=== PATIENT | male | born 1965 | race Caucasian/White ===

== ENCOUNTER 2018-08-29 08:44 | Emergency (ER) | payer OTHER, SELFPAY ==
[2018-08-29 08:46] VITALS: BP 113/85; PULSE 94; RESP 12; TEMP 37; O2SAT 99; BMI 22.4
--- NOTE | 2018-08-29 08:59 | ED.VISSUMM ---
- ER Visit Summary Date of Service: 08/29/18 Chief Complaint: Dysuria, fever History of Present Illness: The patient is a 53 M who is otherwise healthy presents with dysuria and fever. Patient had a colonoscopy done on Saturday. He states he had a normal prep. He states that unfortunately, they did find evidence of colon cancer. He states on Saturday, he began to have a lot of bladder pain. He states that he would have a lot of pain when he urinated and began to develop fevers. He states as long as he takes Tylenol, the pain is bearable and his fever is controlled. He has no abdominal pain. He has no back pain. He has no nausea or vomiting. He is moving his bowels without issue. He denies any rectal pain or pain with moving his bowels. Physical Examination: Vital signs reviewed General: Well-nourished, well-developed Head: Normocephalic, atraumatic Eyes: Pupils equal and reactive, extraocular muscles intact Neck, supple, no lymphadenopathy Heart: Regular rate and rhythm Respiratory: No distress, clear bilaterally Abdomen: Soft, nontender, nondistended, no peritoneal signs Back: Nontender Extremities: Nontender, no edema, no cords Skin: Normal color no rash Neuro: Alert and oriented, no focal or lateralizing deficits Test Results: [] Emergency Department Course and Treatment: The patient has absolutely no abdominal pain. He is afebrile here. He has no flank pain. He said a lot of pain with urination and intermittent fever. I do suspect acute cystitis as the cause of his symptoms. Urine was obtained which does show definitive evidence of infection. Culture was added. At this time, I do feel the patient is safe for outpatient therapy. He is not hypotensive. Is not tachycardic. He is afebrile here. He is very well-appearing and has no significant comorbidities. The patient will be started on ciprofloxacin. He was counseled on concerning symptoms and reasons to return. Culture will be followed. The patient will be discharged home. Treatment Plan: [] Disposition: Discharge Impression: 1. Acute cystitis with hematuria This note was generated with [employer] software. It may contain incorrect words, spelling, and punctuation that were not noted in review of the chart prior to signing ED Disposition - Plan for ED Patient: Chief Complaint: Fever Instructions: ED UTI Cystitis Male Prescriptions: Ciprofloxacin [Cipro] 500 mg PO BID #14 tab Referrals: Dami Flores III, MD [STAFF PHYSICIAN] -
[2018-08-29 09:06] LABS: Bacteria 0 SEEN /hpf (None Seen); Squamous Epithelial Cells - UA 0 SEEN /hpf (0-5)
[2018-08-29 09:08] LABS: Color, Urine Yellow (Yellow); Glucose, Dipstick Normal (Normal); Ketone-Dipstick 5 mg/dl (Negative); Leukocyte Esterase-Dipstick 500 /ul (Negative); Nitrite-Dipstick Negative (Negative); Occult Blood-Urine 250 /ul (Negative); Protein-Dipstick 100 mg/dl (Negative); Urine Bilirubin Dipstick Negative (Negative); Urine Clarity Cloudy (Clear); Urine Urobilinogen 4 mg/dl (Normal)
[2018-08-29] MEDS: Ciprofloxacin 500 MG Tablet PO (09:16)
[2018-08-29 09:20] LABS: Mucous, Urine 1+ /hpf (<or=2+); Red Blood Cells-Urine 10-25 SEEN /hpf (0-5); White Blood Cells >100 SEEN /hpf (0-5)
== END 2018-08-29 09:25 | disposition home or self-care (01) ==
PROVIDERS: Emergency Provider Emergency Medicine; Family Provider Family Medicine; PCP Family Medicine
DX: N30.01 Acute cystitis with hematuria (principal)
CPT/HCPCS: 81001; 87077; 87086; 87088; 87186; 99282

== ENCOUNTER 2018-09-22 05:52 | Day surgery (SDC) | payer OTHER, SELFPAY ==
[2018-09-22] VITALS (10 sets, daily range): BP systolic 80–109; BP diastolic 55–78; PULSE 45–55; RESP 14–16; TEMP 36.2–36.8; O2SAT 94–100; BMI 22.9
[2018-09-22] MEDS: Cefazolin 2 GM in 0.9% Normal Saline 100 ML IV (08:03)
[2018-09-22] MEDS: Bupivacaine 0.5% PF 10 ML VIAL (08:18)
--- NOTE | 2018-09-22 08:42 | RAD_ITS ---
STUDY: X-RAY CHEST REASON FOR EXAM: Male, 53 years old. Port placement. TECHNIQUE: Single AP portable view of the chest. COMPARISON: None. FINDINGS: A left-sided portacatheter has been placed. The tip is in the midportion of the superior vena cava. Focal infiltrate is seen in the retrocardiac region. There is no demonstrated pleural abnormality. Normal size heart. Normal mediastinum and jair. Normal visualized pulmonary arteries. Normal visualized aortic arch and descending thoracic aorta. Normal visualized thoracic spine. Normal visualized ribs, clavicles, and shoulders. There is no demonstrated abnormality of the visualized soft tissue structures of the upper abdomen. RAD/CXR for Line Placement IMPRESSION: The tip of the left portacatheter is in the midportion of the superior vena cava. Infiltrate in the left lung base behind the heart. Electronically Signed: Luther Leon MD at 9:15 EDT Tel [phone], Service support ,
--- NOTE | 2018-09-22 08:42 | PCM.OPRPT ---
Report of Operation Date of Procedure: 09/22/18 Pre-Operative Diagnosis: rectal cancer, need for IV access Post-Operative Diagnosis: successful left subclavian portacath Surgery/Procedure Performed:: left subclavian portacath with fluoroscopy health care technician: None Type of Anesthesia:: MAC Anesthesiologist: Manny Arevalo - asa2 Specimen's removed: none Estimated Blood Loss (mL): <10 Fluids Replaced: 700 Description of Procedure: The patient was brought to the operating suite. The left subclavian site was marked in the holding area and the patient concurred this was the planned operative site. Sign was performed verifying patient, site, position, skip antibiotic prophylaxis-2 g of Ancef and DVT prophylaxis with SCDs. Following IV sedation, the left neck and chest were prepped and draped in the usual fashion. Timeout was performed verifying patient, site, position. Local anesthetic was injected and a Seldinger needle was used to access the left subclavian vein without difficulty. Under fluoroscopic control, a guidewire was inserted and advanced the SVC RA region. Local anesthetic was injected and incision made and pocket created for the port site. Next the catheter was tunneled from the wire site incision to the port site incision. Under fluoroscopic control introducer sheath and dilator were inserted over the wire. The wire and dilator removed. The catheter was fed through the introducer suture sheath and adjusted to the SVC RA region. There was good return of venous blood and easy inflow of saline through the system. Fluoroscopy demonstrated good positioning of the catheter. Next the catheter was cut to length affixed to the port with the locking ring and secured in the pocket with 2-2-0 Prolene sutures. Subcutaneous fat closed with interrupted 3-0 Vicryl suture. Skin closed with 4-0 Biosyn interrupted and running subcuticular sutures. Fluoroscopy demonstrated good position of the system. The port was accessed. There was good return of venous blood. Inflow of saline was easy. The port was then flushed with 2-3 cc of 100 unit per heparin solution. A dressing was applied. The patient was brought to recovery room in stable condition. Grafts/Implants Used: power port ref [id number] exp 01/23/2020 - Admit VTE Documentation VTE Present on Admission: No VTE Mechan Device Prophylaxis: SCD's VTE Pharm Prophylaxis ordered?: No
--- NOTE | 2018-09-22 08:47 | DCINST_ITS ---
Discharge Diet: No Restrictions - Pain medication may cause nausea. You should typically eat light foods as you take your pain medication. Discharge Activity: Return to Normal Activity, May Shower - with the bandage in place 1-2 days after surgery. DO NOT SHOWER WHEN YOUR PORT IS ACCESSED. Additional Activity Instructions:: May not drive, work with heavy equipment, or sign legal documents for [address] if you are no longer taking narcotic pain medications. You may drive when you are no longer taking pain medications. Additional Dressing/Incision Instructions:: Leave the bandage on for 2-3 days. When you remove the bandage, leave the steri-strips intact until they fall off. Allergies/Adverse Reactions: Allergies No Known Allergies Allergy (Verified 09/18/18 10:15) Medications to take at Discharge Atorvastatin Calcium [Lipitor] 20 mg PO QHS 09/22/18 Omeprazole 40 mg PO DAILY 09/22/18 Oxycodone [Oxyir] 5 mg PO Q6H PRN PRN 7 Days #12 tab 09/22/18 The following prescriptions were given: Oxycodone [Oxyir] 5 mg PO Q6H PRN PRN 7 Days #12 tab PRN Reason: Severe Pain (6-09/03) Primary Care Physician: Parvez Winston MD [Primary Care Provider] - Test Results: Test results from this visit will be discussed in further detail at your follow- up appointment, if applicable. Please Follow Up With: Blu Kruger MD - [phone] When: Please plan to follow up in 7 days in the office.
== END 2018-09-22 10:14 | disposition home or self-care (01) ==
LOC: SDC 05:53 → AC 05:54
PROVIDERS: Family Provider Family Medicine; PCP Family Medicine; Referring Provider Surgery; Visit Provider Surgery
PROC: (CPT 36561; principal; 2018-09-22 07:45)
DX: Z45.2 Encounter for adjustment and management of vascular access device (principal); C20 Malignant neoplasm of rectum; K22.70 Barrett's esophagus without dysplasia; E04.1 Nontoxic single thyroid nodule; N40.2 Nodular prostate without lower urinary tract symptoms; Z79.899 Other long term (current) drug therapy; Z87.891 Personal history of nicotine dependence; Z80.0 Family history of malignant neoplasm of digestive organs
CPT/HCPCS: 00532; 36561; 71045; 77001; J7120; C1788; J2405

== ENCOUNTER → 2018-10-13 14:28 | Outpatient (CLI) | payer OTHER, SELFPAY ==
[2018-10-13 14:48] LABS: Hematocrit 38.3 % (40-54); Hemoglobin 12.4 g/dl (13.0-16.5); Mean Corp Hgb Conc 32.4 g/gl (32-36); Mean Corpuscular Hgb 29.3 pg (27.0-32.0); Mean Corpuscular Volume 90.5 fL (80-94); Mean Platelet Vol. 8.7 fl (6.2-12.0); Platelet Count 193 K/mm3 (150-450); RBC Distribution Width CV 13.8 % (11.6-14.6); RBC Distribution Width SD 44.2 fl (35.1-43.9); Red Blood Count 4.23 M/mm3 (4.6-6.2); White Blood Count 4.5 K/mm3 (4.4-11.0)
[2018-10-13 14:56] LABS: Lymphocyte % 22.8 % (19-41); Monocyte% 14.4 % (0-10); POSITIVE COUNT NO; POSITIVE DIFFERENTIAL NO; POSITIVE MORPHOLOGY NO
[2018-10-13 14:57] LABS: Absolute Lymphocyte Count 1.04 X10^3/ul (0.83-4.51); Absolute Neutrophil Count 2.7 X10^3/uL (2.0-7.7); Basophil# 0.02 X10^3/uL; Basophil% 0.4 % (0-1); Eosinophil# 0.09 X10^3/uL; Lymphocyte # 1.04 X10^3/ul (4.0); Monocyte# 0.66 X10^3/uL; Neutrophil # 2.74 X10^3/uL (2.7-7.7)
== END ==
PROVIDERS: PCP Family Medicine; Visit Provider Internal Medicine Hematology & Oncology
DX: C20 Malignant neoplasm of rectum (principal)
CPT/HCPCS: 85025

== ENCOUNTER → 2018-10-24 17:09 | Outpatient (CLI) | payer OTHER, SELFPAY ==
[2018-09-22 06:45] VITALS: BMI 22.9
--- NOTE | 2018-10-24 | IMM_PTH ---
PATIENT: SASKIA VILLARREAL LOC: [facility] U#:[id number] AGE/SX: 60/M ROOM: RE10/24/[address]: Dr. Cat Mohamud MD : 1965 BED: DIS: SPEC #: [id number] RECD: 10/28/18 12:39 STATUS: LAYO RERusty #: [id number] ANDRÉS: 10/24/18 00:[address]: Cat Mohamud DEPT: IMMUNOHISTOCHEMISTRY RECD BY: Margie Horta ENTERED: 10/28/18 12:42 SP TYPE: IMMUNO OTHR DR: Dr. Parvez Winston MD Tissues: A - Thyroid gland, NOS Procedures: CK19 (initial) CD56 (add) GAL-3 (add) HBME (add) PHYSICIAN & INSTITUTION [place] [id number] SPECIMEN INFORMATION: Tissue Source: A - Right thyroid Clinical Info: Right thyroid nodule Specimen Number: [id number] CPT code: 07445, 42238 x3 METHODOLOGY: Deparaffinized sections of prefer/formalin-fixed tissue or PAP/DQ stained slides are incubated with monoclonal/polyclonal antibodies/oligonucleotide probes. Localization is made via biotin free immunoperoxidase method. Appropriate controls are performed and reacted as expected. Results on target cell population are indicated in the following table: RESULTS: ANTIBODY / CLONE RESULT Block A CK19 (A53-B/A2.26) positive CD56 (123C3.D5) positive HBME1 (HBME-1) positive GAL3 (9C4) negative These tests were developed and their performance characteristics determined by [facility]. They may not have been cleared or approved by the U.S. Food and Drug Administration. The FDA has determined that such clearance or approval is not necessary. INTERPRETATION: A. Right thyroid, FNA: Atypical follicular cells of undetermined significance. SJ:beena 10/29/18 Case has been reviewed in consultation with Dr. Cline who concurs with the above diagnosis. IDC:EMILI
--- NOTE | 2018-10-24 | FLU_PTH ---
PATIENT: SASKIA VILLARREAL LOC: [facility] U#:[id number] AGE/SX: 60/M ROOM: RE10/24/[address]: Dr. Cat Mohamud MD : 1965 BED: DIS: SPEC #: [id number] RECD: 10/24/18 16:47 STATUS: LAYO RERusty #: [id number] ANDRÉS: 10/24/18 00:[address]: Cat Mohamud DEPT: CYTOLOGY RECD BY: Flako Carroll ENTERED: 10/27/18 12:28 SP TYPE: Fluid OTHR DR: Dr. Parvez Winston MD Tissues: A - Thyroid gland, NOS B - Thyroid gland, NOS Procedures: Pap Stain (control) Special Stain Group II Surgery Specimen Level IV Cell Block Cytospin Fluid HEADER OPERATION: Ultrasound-guided fine needle aspiration of right thyroid PRE-OP DIAGNOSIS: Right thyroid nodule TISSUE SUBMITTED: A - FNA right thyroid for cytology, B - FNA right thyroid slides DIAGNOSIS CYTOLOGY A. Right thyroid nodule fluid for cytology (cytospin and cell block): Atypical follicular cells of undetermined significance are noted. See comment. B. Right thyroid nodule, FNA (smears): Atypical follicular cells of undetermined significance are noted. Adequate for evaluation. SJ:rg 10/28/18 COMMENT A. Immunohistochemistry ([id number]) supports the above diagnosis. Correlation with clinical, radiologic findings and appropriate follow up are necessary. Case has been reviewed in consultation with Dr. Cline who concurs with the above diagnosis. IDC:AM CYTOLOGY STUDY Slides are reviewed. CYTOLOGY GROSS A - Received is 30 ml of brown, cloudy fluid labeled with the patient's name and and designated per the requisition as right thyroid. Submitted for cytology preparation including cell block. B - Received are eight smears labeled with the patient's name and designated per the requisition as right thyroid. Submitted for staining. 10/27/18 TC:5 CPT: 86491, 32817, 63134
== END ==
PROVIDERS: Family Provider Family Medicine; PCP Family Medicine; Referring Provider Surgery; Visit Provider Surgery
DX: E04.1 Nontoxic single thyroid nodule (principal)
CPT/HCPCS: 88108; 88305; 88313; 88341; 88342

== ENCOUNTER 2019-02-16 15:47 | Observation (INO) | payer OTHER, SELFPAY ==
[2019-02-16] VITALS (8 sets, daily range): BP systolic 129–155; BP diastolic 85–92; PULSE 64–82; RESP 16–23; TEMP 36.7–36.8; O2SAT 97–98; BMI 22.3; BMI 22.6; BMI 22.7
--- NOTE | 2019-02-16 16:16 | EKG12_ITS ---
Test Reason : CP Blood Pressure : / mmHG Vent. Rate : 072 BPM Atrial Rate : 072 BPM P-R Int : 126 ms QRS Dur : 098 ms QT Int : 380 ms P-R-T Axes : 052 028 029 degrees QTc Int : 416 ms Normal sinus rhythm Normal ECG Confirmed by ARSH CRUZ, TOYA ([id number]), design editor DREW DRISCOLL ([id number]) on 02/18/2019 1:30:50 PM Referred By: DAISY/JUSTIN Confirmed By:TOYA CABAN MD
--- NOTE | 2019-02-16 16:16 | RAD_ITS ---
STUDY: X-RAY CHEST REASON FOR EXAM: Male, 54 years old. Cough, chest pain TECHNIQUE: Portable chest COMPARISON: 09/22/2018 FINDINGS: There is a central venous catheter and a left subclavian approach, the tip is in the superior vena cava. There is no pneumothorax. There are mild bibasilar linear opacities. There is no demonstrated pleural abnormality. Normal size heart. Normal mediastinum and jair. Normal visualized pulmonary arteries. Normal visualized aortic arch and descending thoracic aorta. Normal visualized thoracic spine. Normal visualized ribs, clavicles, and shoulders. There is no demonstrated abnormality of the visualized soft tissue structures of the upper abdomen. RAD/Chest 1 View (Portable) IMPRESSION: central venous catheter tip within the superior vena cava Mild bibasilar pulmonary opacities, likely pulmonary infiltrates, suspicious for pneumonia and subsegmental atelectasis Electronically Signed: Wil Martell, at 17:36 EDT Tel , Service support ,
--- NOTE | 2019-02-16 16:17 | ED.VISSUMM ---
- ER Visit Summary Date of Service: 02/16/19 Chief Complaint: Left sided chest pain History of Present Illness: The patient is a 54 M history of colon CA for which she is doing very going radiation chemotherapy. He said he did not need any type of surgical resection after the colonoscopy. States that last evening and today he has had episodes of chest pain he denies any diaphoresis. No hemoptysis. No fever or chills. Denies being short of breath. No leg pain or swelling. No prior history of DVT or PE. No recent travel, surgery or immobilization. He did negative stress test 10 years ago. He has an extensive family history of coronary disease including a brother with stents. Another brother with a CABG at 54. His dad in his late 40s of an [place] as did another family member. Physical Examination: Middle-aged male no acute distress vital signs are stable afebrile. Pulse ox 98% on room air no signs of hypoxia. H EENT exam unremarkable. Neck nontender. No JVD. No lymphadenopathy. Lungs clear to auscultation bilaterally. Heart regular rate and rhythm no murmur rate about 20. Chest wall nontender. Abdomen soft nontender. Patient is moving all 4 extremities. Neurovascular intact. Calves are nontender without edema or cords. Equal symmetrical radial pulses. Neurologically is awake and alert with no focal motor deficits. Back exam is nontender. Skin is unremarkable. Test Results: EKG shows a sinus rhythm rate of 72 with no signs or ischemia. CBC shows a white count of 3. Hemoglobin 13. Chemistries normal. Troponin normal. D-dimer slightly elevated at 0.66. Chest x-ray shows a MediPort. Atelectasis. Read by myself and radiologist. Emergency Department Course and Treatment: P.o. aspirin. Cardiac workup. Treatment Plan: The patient's elevated d-dimer salts. Due to his atypical nonreproducible chest pain I am concerned due to his severe family history of cardiac disease I spoke to the hospitalist about admission. Disposition: Admission Impression: Acute chest pain uncertain etiology This note was generated with [employer] dictation software. It may contain incorrect words, spelling, and punctuation that were not noted in review of the chart prior to signing ED Disposition - Plan for ED Patient: Disposition: Acute Care [facility]
--- NOTE | 2019-02-16 16:20 | ED.DCSUM_ITS ---
- ER Visit Summary Date of Service: 02/16/19 Chief Complaint: Left sided chest pain History of Present Illness: The patient is a 54 M history of colon CA for which she is doing very going radiation chemotherapy. He said he did not need any type of surgical resection after the colonoscopy. States that last evening and today he has had episodes of chest pain he denies any diaphoresis. No hemoptysis. No fever or chills. Denies being short of breath. No leg pain or swelling. No prior history of DVT or PE. No recent travel, surgery or immobilization. He did negative stress test 10 years ago. He has an extensive family history of coronary disease including a brother with stents. Another brother with a CABG at 54. His dad in his late 40s of an [place] as did another family member. Physical Examination: Middle-aged male no acute distress vital signs are stable afebrile. Pulse ox 98% on room air no signs of hypoxia. H EENT exam unremarkable. Neck nontender. No JVD. No lymphadenopathy. Lungs clear to auscultation bilaterally. Heart regular rate and rhythm no murmur rate about 20. Chest wall nontender. Abdomen soft nontender. Patient is moving all 4 extremities. Neurovascular intact. Calves are nontender without edema or cords. Equal symmetrical radial pulses. Neurologically is awake and alert with no focal motor deficits. Back exam is nontender. Skin is unremarkable. Test Results: EKG shows a sinus rhythm rate of 72 with no signs or ischemia. CBC shows a white count of 3. Hemoglobin 13. Chemistries normal. Troponin normal. D-dimer slightly elevated at 0.66. Chest x-ray shows a MediPort. Atelectasis. Read by myself and radiologist. Emergency Department Course and Treatment: P.o. aspirin. Cardiac workup. Treatment Plan: The patient's elevated d-dimer salts. Due to his atypical nonreproducible chest pain I am concerned due to his severe family history of cardiac disease I spoke to the hospitalist about admission. Disposition: Admission Impression: Acute chest pain uncertain etiology This note was generated with [employer] dictation software. It may contain incorrect words, spelling, and punctuation that were not noted in review of the chart prior to signing ED Disposition - Plan for ED Patient: Disposition: Acute Care [facility]
[2019-02-16] MEDS: Aspirin 81 MG TAB.CHEW 324 MG PO (16:53)
[2019-02-16 17:10] LABS: Absolute Lymphocyte Count 0.99 X10^3/ul (0.83-4.51); Absolute Neutrophil Count 1.9 X10^3/uL (2.0-7.7); Basophil# 0.02 X10^3/uL; Basophil% 0.5 % (0-1); Eosinophil# 0.18 X10^3/uL; Eosinophils% 4.7 % (0-5); Hematocrit 38.8 % (40-54); Hemoglobin 13.3 g/dl (13.0-16.5); Lymphocyte # 0.99 X10^3/ul (4.0); Lymphocyte % 25.8 % (19-41); Mean Corp Hgb Conc 34.3 g/gl (32-36); Mean Corpuscular Hgb 30.6 pg (27.0-32.0); Mean Corpuscular Volume 89.4 fL (80-94); Mean Platelet Vol. 9.1 fl (6.2-12.0); Monocyte# 0.69 X10^3/uL; Neutrophil # 1.94 X10^3/uL (2.7-7.7); Neutrophil % 50.7 % (47-70); Platelet Count 195 K/mm3 (150-450); RBC Distribution Width CV 14.1 % (11.6-14.6); RBC Distribution Width SD 46.1 fl (35.1-43.9); Red Blood Count 4.34 M/mm3 (4.6-6.2); White Blood Count 3.8 K/mm3 (4.4-11.0)
[2019-02-16 17:17] LABS: Anion Gap 4 (5-15); BUN 14 mg/dL (7-18); BUN/Creat Ratio 15.9 RATIO (10-20); Calcium,Total 8.6 mg/dL (8.5-10.1); Chloride 106 mmol/L (98-107); Creatinine, Serum 0.88 mg/dL (0.70-1.30); EST Glomerular Filtration Rate 95 mL/min (>60); Est Glom Filt Rate - Afr Amer 116 mL/min (>60); Glucose 95 mg/dL (74-106); Potassium 4.2 mmol/L (3.5-5.1); Sodium Level 139 mmol/L (136-145)
[2019-02-16 17:19] LABS: POSITIVE COUNT NO; POSITIVE DIFFERENTIAL NO; POSITIVE MORPHOLOGY NO
[2019-02-16 18:25] LABS: D-Dimer Quantitative (DVT/PE) 0.66 FEU/ug/m (0.27-0.49)
--- NOTE | 2019-02-16 18:38 | CT_ITS ---
STUDY: CTA CHEST REASON FOR EXAM: Male, 54 years old. Chest pain RADIATION DOSAGE (If Supplied By Facility): CTDIvol = ( 8.94 ) mGy, DLP = ( 385.33 ) mGycm TECHNIQUE: The examination was performed with the intravenous administration of Isovue 370 100 IV. Post-processing of the angiographic images was performed, with multiplanar reformation and 3D reconstruction. Individualized dose optimization techniques were used for this CT. COMPARISON: None. FINDINGS: The exam is limited due to motion artifact. Normal enhancement of the main pulmonary artery and right and left pulmonary arteries. Normal enhancement of the bilateral peripheral pulmonary arteries. There is no demonstrated pulmonary embolism. Normal thoracic aorta and visualized great vessels. There is 1 cm x 9 mm hypodense lesion within the right lobe of the thyroid. There is a central venous catheter tip in the superior vena cava. There is no demonstrated aortic dissection. Normal heart and pericardium. Normal mediastinum. Normal hilar regions. There is bibasilar subsegmental atelectasis. There is biapical pulmonary scarring. There are a scattered 2 to 3 mm pulmonary nodules. There is biapical pulmonary scarring. Multilevel Schmorl's nodes. Normal pleura. Normal chest wall structures. Normal visualized upper abdomen. CT/CTA Chest W/WO Contrast IMPRESSION: Normal CTA chest examination, without a demonstrated pulmonary embolism or arterial dissection. Exam is limited due to motion artifact. 1 cm x 9 mm hypodense lesion within the right lobe of the thyroid, thyroid ultrasound follow-up is recommended Bibasilar subsegmental atelectasis Biapical scarring There are scattered 2 to 3 mm pulmonary nodules likely benign, six-month CT follow-up could be performed for stability Multilevel spondylosis thoracic spine multilevel Schmorl's nodes Electronically Signed: Wil Martell, at 21:17 EDT Tel , Service support ,
--- NOTE | 2019-02-16 19:40 | HP.PCM_ITS ---
Problem List (1) Chest pain Status: Acute History of Present Illness Date of Admission: 02/16/19 Chief Complaint: chest pain The patient is a 54 year old M with a significant history of GERD; hyperlipidemia; colon cancer repair history of radiation and now on chemotherapy who presented to the emergency department because of the progressively worsening episodic excruciating left-sided chest pain that radiated to his left shoulder and to his back. Associated with symptoms is more nausea than he typically has with his chemotherapy. His last chemotherapy was a week ago. Patient denies any vomiting. He denies kulwinder diaphoresis but reports that his feet get sweaty. Patient reported that when his chest pain started as he was doing light chores but on the day of presentation he had another episode of chest pain away he was resting. His chest pain was gradual in onset. The last time he had chest pain was few hours prior to presentation. Patient denies any aggravating or ameliorating factor. At the emergency department troponin was negative. EKG was unremarkable but d-dimer was elevated. Because of elevated d-dimer emergency department doctor ordered a CT PA. He has not had the same type of chest pain before. About 14 years he had some chest pain that was attributed to muscle spasms. Past Medical History Medical History: Medical History (Last Reviewed 02/16/19 @ 19:58 by Javon Arenas MD) Colon cancer C18.9 GERD (gastroesophageal reflux disease) K21.9 HLD (hyperlipidemia) E78.5 Allergies No Known Allergies Allergy (Verified 09/18/18 10:15) Home Medications: Ambulatory Orders Medication Instructions Recorded Atorvastatin Calcium [Lipitor] 20 mg PO QHS 09/22/18 Omeprazole 40 mg PO DAILY 02/16/19 Surgical History: - - Port placement Psychiatric History: No pertinent psych hx Lives: Spouse/ Significant Other Smoking Status: Former smoker Alcohol: None - *Family History Maternal History Items: Heart Disease - Patient has multiple brothers that have heart disease. His one brother at age 49 from a massive heart attack. Another brother in his early 50s had 8 stents. Another brother at age 54 had a CABG. Paternal History Items: Heart Disease - His father at the age of 48. His father had heart condition but he did not know whether his father from a heart condition or not. Patient has multiple brothers that have heart disease. His one brother at age 49 from a massive heart attack. Another brother in his early 50s had 8 stents. Another brother at age 54 had a CABG. Review of Systems Constitutional: Reports: Chills, Fatigue. Denies: Fever, Weight Change HEENT: Denies: Head Aches, Sinus Congestion, Sinus Drainage Cardiovascular: Reports: Chest Pain. Denies: Palpitations Respiratory: Denies: Cough, Shortness of breath at rest, Sputum production Gastrointestinal: Reports: Nausea. Denies: Abdominal Pain, Vomiting Genitourinary: Denies: Dysuria Musculoskeletal: Denies: Joint Pain, Joint Tenderness Skin: Denies: Rash, Wounds Neurological: Denies: Numbness, Tingling, Focal weakness Psychiatric: Denies: Anxiety, Depression, Homicidal Ideations, Suicidal Ideations Hematologic/ Lymphatic: Denies: Easy Bruising, Easy Bleeding VTE Information - Inpt Only VTE Present on Admission: No VTE Mechan Device Prophylaxis: None VTE Pharm Prophylaxis ordered?: Yes Patient Problems: Active and Suspected Problems (Last Reviewed 02/16/19 @ 19:58 by Javon Arenas MD) Chest pain (Acute) - Physical Exam General: Alert, Oriented x3, Cooperative HEENT: Atraumatic, PERRLA, EOMI, Normocephalic Neck: Supple, No JVD, Negative Carotid Bruits Lungs: Clear to auscultation, Normal air movement, - - Port-A-Cath at left upper chest. Cardiovascular: Regular rate, No murmurs Abdomen: Bowel Sounds Present, Soft, Non Tender Extremities: No edema, Capillary Refill Less than 3 Seconds Skin: No rashes, No breakdown Musculoskeletal: No Tenderness to Palpation of Joints or Extremities Neurological: Neuro grossly intact Psych/Mental Status: Normal Affect, Appropriate Vital Signs Temp Pulse Resp BP Pulse Ox 98.2 F 64 17 132/89 H 98 02/16/19 15:48 02/16/19 18:00 02/16/19 18:00 02/16/19 18:00 02/16/19 18:00 Oxygen Flow Rate (L/min) 2 Oxygen Delivery Method Nasal Cannula Weight: 66.678 kg Body Mass Index (BMI) 22.3 Laboratory Tests Past 24 Hrs 02/16/19 02/16/19 02/16/19 16:45 16:45 16:45 WBC 3.8 L RBC 4.34 L Hgb 13.3 Hct 38.8 L MCV 89.4 MCH 30.6 MCHC 34.3 RDW 14.1 RDW Differential 46.1 H Plt Count 195 MPV 9.1 Immature Gran % (Auto) 0.300 Neut % (Auto) 50.7 Lymph % (Auto) 25.8 [place] % (Auto) 18.0 H Eos % (Auto) 4.7 Baso % (Auto) 0.5 Absolute Neuts (auto) 1.9 L Absolute Lymphs (auto) 0.99 Total Counted Not Reportable D-Dimer Quant (PE/DVT) 0.66 H* Sodium 139 Potassium 4.2 Chloride 106 Carbon Dioxide 29.0 Anion Gap 4 L BUN 14 Creatinine 0.88 Estim Creat Clear Calc 88.40 Est GFR (MDRD) Af Amer 116 Est GFR (MDRD) Non-Af 95 BUN/Creatinine Ratio 15.9 Glucose 95 Calcium 8.6 Troponin I < 0.015 Assessment/Plan All Active Problems (Last Reviewed 02/16/19 @ 19:58 by Javon Arenas MD) Chest pain (Acute) The patient is a 54 year old M with a significant history of GERD; hyperlipidemia; colon cancer with previous radiation and now on chemotherapy who presented to the emergency department because of progressively worsening episodic excruciating left-sided chest pain that radiated to his left shoulder and to his back and with a very remarkable family history of cardiac disease. Chest pain Admit to a monitored bed on PCU CXR independently reviewed confirms no acute cardiopulmonary process. EKG independently reviewed confirms no ST or T wave abnormalities. Sinus Rhythm. Received 4 baby aspirin at the emergency department. ASA 81 mg p.o. daily SL NTG 0.4 mg prn as needed for chest pain Morphine as needed for pain We will check lipid panel. We will continue patient on his home statin. Initial troponin was negative. Serial cardiac enzymes Stat EKG as needed for chest pain Chemical stress test in the AM if the cardiac enzymes are negative and if a CTPA is unremarkable. He reported because of his cancer he easily gets fatigue and was concerned if he has to do a treadmill stress test. GERD Omeprazole continued Colon cancer Status post radiation now on chemotherapy. Continue outpatient treatments. DVT prophylaxis Subcutaneous Lovenox ordered DVT prophylaxis ordered. Code Visit OBSV E&M: 43960 Initial observation care L3
[2019-02-16] MEDS: 0.9% Normal Saline 1,000 ML 999 ML IV (19:53)
--- NOTE | 2019-02-16 20:00 | ED.RN ---
INITIAL BLOOD RETURN WITH PORT ACCESS, NOT ABLE TO DRAW LABS THOUGH AFTER SEVERAL MINUTES. FLUSHES WELL, NO PAIN.
--- NOTE | 2019-02-16 20:40 | EKG12_ITS ---
Test Reason : CP Blood Pressure : / mmHG Vent. Rate : 069 BPM Atrial Rate : 069 BPM P-R Int : 128 ms QRS Dur : 102 ms QT Int : 398 ms P-R-T Axes : 046 018 011 degrees QTc Int : 426 ms Normal sinus rhythm Normal ECG When compared with ECG of 16-FEB-2019 23:03, MANUAL COMPARISON REQUIRED, DATA IS UNCONFIRMED Confirmed by IDRIS CRUZ, BILL ([id number]), supervising film or videotape editor DREW DRISCOLL ([id number]) on 02/20/2019 1:55:09 PM Referred By: LIDA Confirmed By:BILL STEINBERG MD
[2019-02-16] MEDS: Atorvastatin Calcium 20 MG Tablet PO (23:02)
[2019-02-17] VITALS (7 sets, daily range): BP systolic 110–123; BP diastolic 69–82; PULSE 67–89; RESP 18; TEMP 36.7–36.8; O2SAT 96–97
--- NOTE | 2019-02-17 04:04 | NURSING ---
Pt c/o left sided chest pain, vitals WNL, AM EKG completed early. Will continue to monitor.
[2019-02-17 05:08] LABS: Absolute Lymphocyte Count 0.74 X10^3/ul (0.83-4.51); Absolute Neutrophil Count 1.8 X10^3/uL (2.0-7.7); Basophil# 0.03 X10^3/uL; Basophil% 0.9 % (0-1); Eosinophil# 0.16 X10^3/uL; Eosinophils% 4.6 % (0-5); Hematocrit 37.2 % (40-54); Hemoglobin 12.5 g/dl (13.0-16.5); Lymphocyte # 0.74 X10^3/ul (4.0); Lymphocyte % 21.4 % (19-41); Mean Corp Hgb Conc 33.6 g/gl (32-36); Mean Corpuscular Hgb 30.6 pg (27.0-32.0); Mean Corpuscular Volume 91.2 fL (80-94); Mean Platelet Vol. 8.7 fl (6.2-12.0); Monocyte# 0.71 X10^3/uL; Monocyte% 20.5 % (0-10); Platelet Count 187 K/mm3 (150-450); RBC Distribution Width CV 13.9 % (11.6-14.6); RBC Distribution Width SD 45.3 fl (35.1-43.9); Red Blood Count 4.08 M/mm3 (4.6-6.2); White Blood Count 3.5 K/mm3 (4.4-11.0)
[2019-02-17 05:11] LABS: POSITIVE COUNT NO; POSITIVE DIFFERENTIAL NO; POSITIVE MORPHOLOGY NO
[2019-02-17 05:16] LABS: International Normalized Ratio 1.1; Partial Thromboplast Time 25.2 Seconds (24.1-36.2); Prothrombin Time (Protime)PT. 14.1 SECONDS (11.7-14.9)
[2019-02-17] MEDS: Pantoprazole Sodium 40 MG Tablet PO (05:33)
[2019-02-17] MEDS: Aspirin E.C. 81 MG Tablet PO (05:33)
[2019-02-17 05:37] LABS: Anion Gap 6 (5-15); BUN 13 mg/dL (7-18); BUN/Creat Ratio 17.2 RATIO (10-20); Calcium,Total 8.3 mg/dL (8.5-10.1); Chloride 109 mmol/L (98-107); Cholesterol 234 mg/dL (200); Creatinine, Serum 0.75 mg/dL (0.70-1.30); EST Glomerular Filtration Rate 114 mL/min (>60); Est Glom Filt Rate - Afr Amer 138 mL/min (>60); Estimated Creatinine Clearance 105.13 ml/min; Glucose 100 mg/dL (74-106); High Density Lipoprotein 54 mg/dL; Sodium Level 142 mmol/L (136-145); Triglycerides 167 mg/dL; Very Low Density Lipoprotein 33 mg/dL (5-40)
--- NOTE | 2019-02-17 05:55 | EKG12_ITS ---
Test Reason : CP ADMISSION Blood Pressure : / mmHG Vent. Rate : 074 BPM Atrial Rate : 074 BPM P-R Int : 130 ms QRS Dur : 106 ms QT Int : 380 ms P-R-T Axes : 053 017 013 degrees QTc Int : 421 ms Normal sinus rhythm Normal ECG When compared with ECG of 16-FEB-2019 15:55, MANUAL COMPARISON REQUIRED, DATA IS UNCONFIRMED Confirmed by IDRIS CRUZ, BILL ([id number]), loan expeditor DREW DRISCOLL ([id number]) on 02/20/2019 1:55:24 PM Referred By: LIDA Confirmed By:BILL STEINBERG MD
--- NOTE | 2019-02-17 08:42 | STRESSREP ---
Stress Test Report Date: 02-17-19 Procedure: Pharmacologic stress nuclear imaging study Indications: Chest pain Consent: Per the patient Procedure: The patient underwent pharmacologic (Regadenoson) evaluation with a peak heart rate of 121 beats per minute (73% predicted maximal heart rate) and a peak blood pressure of 144/80 mmHg. The baseline ECG demonstrated normal sinus rhythm. The peak pharmacologic ECG demonstrated no obvious ECG changes. There were no cardiac dysrhythmias pretest, during pharmacologic infusion, or recovery. There was no complaint of chest discomfort during pharmacologic infusion or recovery. The examination was discontinued secondary to completion of protocol. Impression: 1. Pharmacologic (Regadenoson) evaluation 2. Peak pharmacologic ECG with no obvious ECG change. 3. There were no cardiac dysrhythmias pretest, during pharmacologic infusion, or recovery. 4. Nuclear images pending Myocardial perfusion imaging study: Technique: The patient was injected with 11.2 millicuries of technetium 99m Cardiolite and subsequently rest SPECT Cardiolite nuclear imaging was obtained in the horizontal long, vertical long, and short axis views. The patient underwent pharmacologic (Regadenoson) evaluation with a peak heart rate of 121 beats per minute (73 % percent predicted maximal heart rate) and a peak blood pressure of 144/80 mmHg. The patient was injected with 32.8 millicuries of technetium 99m Cardiolite and subsequently stress SPECT Cardiolite nuclear imaging was obtained in the horizontal long, vertical long, and short axis views. A gated Cardiolite study at peak stress was obtained. Interpretation: Rest and stress SPECT Cardiolite nuclear imaging status post realignment and normalization correction demonstrate relative uniform tracer uptake in myocardial perfusion appearing within normal limits. There is end systolic thickening and brightening. The gated Cardiolite study demonstrates myocardial thickening and inward wall motion. The reported LVEF is 57 %. Impression: 1. Rest and stress SPECT Cardiolite nuclear imaging demonstrate relative uniform tracer uptake and myocardial perfusion appearing within normal limits. 2. The gated Cardiolite study reports an LVEF of 57 %. This note was generated with [employer]itors[employer] software. It may contain incorrect words, spelling, and punctuation that were not noted in checking the note before signing.
--- NOTE | 2019-02-17 13:36 | DCINST_ITS ---
- Discharge Diagnoses Current Active Problems: Current Active and Chronic Problems (Last Reviewed 02/16/19 @ 19:58 by Javon Arenas MD) Chest pain (Acute) You will use the following diet at home:: Other - Resume previous diet Your food should be the consistency of: Regular Your liquids should be the consistency of: Regular/Thin Discharge Activity: Return to Normal Activity, - - no driving or operating heavy equipment while taking Zanaflex until you knowq how it affects you. Call your doctor if you observe: Shortness of breath, Dizziness, Fainting spells, Swelling in the ankles, Chest pain, Calf discomfort Additional Instructions: The stress test qwas negative....there is no indication that you have any significant coronary artery disease. The CT scan of the chest showed no pulmonary emboli or blood clots in the lungs. The pain you are having is due to some left side rib dyafuncxtion. I am giving you a prescrition for some muscle relaxers. You can take 1 tab every 6 hours as needed for muscle spasm/chest pain. If the pain does not go away then you should see a chiropracter to put the rib back in place. Pending Tests on Discharge: none Allergies/Adverse Reactions: Allergies No Known Allergies Allergy (Verified 09/18/18 10:15) Medications to take at Discharge Atorvastatin Calcium [Lipitor] 20 mg PO QHS 09/22/18 Omeprazole 40 mg PO DAILY 02/16/19 Tizanidine HCl [Zanaflex] 2 mg PO Q6H PRN PRN #12 tablet 02/17/19 The following prescriptions were given: Tizanidine HCl [Zanaflex] 2 mg PO Q6H PRN PRN #12 tablet PRN Reason: Muscle Spasm Primary Care Physician: Parvez Winston MD [Primary Care Provider] - Please follow up with your Primary Care Physician in: as needed Test Results: Test results from this visit will be discussed in further detail at your follow- up appointment, if applicable. Proposed Discharge Date: 02/17/19
--- NOTE | 2019-02-17 13:42 | DS.PCM_ITS ---
Discharge Date and Diagnosis - Problem List Patient Problems: Active and Suspected Problems (Last Reviewed 02/16/19 @ 19:58 by Javon Arenas MD) Rib cage region somatic dysfunction (Acute) Chest pain (Acute) Date of Admission: 02/16/19 Date of Discharge: 02/17/19 - Primary Discharge Diagnosis Active and Suspected Problems (Last Reviewed 02/16/19 @ 19:58 by Javon Arenas MD) Rib cage region somatic dysfunction (Acute)- left mid to lower thoracic rib cage Chest pain (Acute)-noncardiac - Secondary Discharge Diagnosis Colon cancer GERD Hyperlipidemia Hospital Course and Treatment Imaging Results: 02/17/19 05:55 Nuclear Stress Test - Chemical [NM] AM (NON MEDS) Clinical Impression(s) from Imaging Studies Chest X-Ray 02/16/19 16:16 IMPRESSION: central venous catheter tip within the superior vena cava Mild bibasilar pulmonary opacities, likely pulmonary infiltrates, suspicious for pneumonia and subsegmental atelectasis Electronically Signed: Wil Martell at 17:36 EDT Tel , Service support , Chest CTA 02/16/19 18:38 IMPRESSION: Normal CTA chest examination, without a demonstrated pulmonary embolism or arterial dissection. Exam is limited due to motion artifact. 1 cm x 9 mm hypodense lesion within the right lobe of the thyroid, thyroid ultrasound follow-up is recommended Bibasilar subsegmental atelectasis Biapical scarring There are scattered 2 to 3 mm pulmonary nodules likely benign, six-month CT follow-up could be performed for stability Multilevel spondylosis thoracic spine multilevel Schmorl's nodes Electronically Signed: Wil Martell at 21:17 EDT Tel , Service support , Laboratory Tests 02/17/19 02/17/19 02/17/19 Range/Units 04:50 04:50 04:50 WBC 3.5 L (4.4-11.0) K/mm3 RBC 4.08 L (4.6-6.2) M/mm3 Hgb 12.5 L (13.0-16.5) g/dl Hct 37.2 L (40-54) % MCV 91.2 (80-94) fL MCH 30.6 (27.0-32.0) pg MCHC 33.6 (32-36) g/gl RDW 13.9 (11.6-14.6) % RDW Differential 45.3 H (35.1-43.9) fl Plt Count 187 (150-450) K/mm3 MPV 8.7 (6.2-12.0) fl Immature Gran % (Auto) 0.600 (0.0-0.9) % Neut % (Auto) 52.0 (47-70) % Lymph % (Auto) 21.4 (19-41) % [place] % (Auto) 20.5 H (0-10) % Eos % (Auto) 4.6 (0-5) % Baso % (Auto) 0.9 (0-1) % Absolute Neuts (auto) 1.8 L (2.0-7.7) X10^3/uL Absolute Lymphs (auto) 0.74 L (0.83-4.51) X10^3/ul Total Counted Not Reportable PT 14.1 (11.7-14.9) SECONDS INR 1.1 APTT 25.2 (24.1-36.2) Seconds D-Dimer Quant (PE/DVT) (0.27-0.49) FEU/ug/m Sodium 142 (136-145) mmol/L Potassium 4.0 (3.5-5.1) mmol/L Chloride 109 H (98-107) mmol/L Carbon Dioxide 27.0 (21.0-32.0) mmol/L Anion Gap 6 (5-15) BUN 13 (7-18) mg/dL Creatinine 0.75 (0.70-1.30) mg/dL Estim Creat Clear Calc 105.13 ml/min Est GFR (MDRD) Af Amer 138 (>60) mL/min Est GFR (MDRD) Non-Af 114 (>60) mL/min BUN/Creatinine Ratio 17.2 (10-20) RATIO Glucose 100 (74-106) mg/dL Calcium 8.3 L (8.5-10.1) mg/dL Troponin I (<0.045) ng/mL Triglycerides 167 ( - 199) mg/dL Cholesterol 234 H (200) mg/dL LDL Cholesterol 147 H (0-130) mg/dL VLDL Cholesterol 33 (5-40) mg/dL HDL Cholesterol 54 (40 - ) mg/dL 02/17/19 02/16/19 02/16/19 Range/Units 00:25 21:15 16:45 WBC (4.4-11.0) K/mm3 RBC (4.6-6.2) M/mm3 Hgb (13.0-16.5) g/dl Hct (40-54) % MCV (80-94) fL MCH (27.0-32.0) pg MCHC (32-36) g/gl RDW (11.6-14.6) % RDW Differential (35.1-43.9) fl Plt Count (150-450) K/mm3 MPV (6.2-12.0) fl Immature Gran % (Auto) (0.0-0.9) % Neut % (Auto) (47-70) % Lymph % (Auto) (19-41) % [place] % (Auto) (0-10) % Eos % (Auto) (0-5) % Baso % (Auto) (0-1) % Absolute Neuts (auto) (2.0-7.7) X10^3/uL Absolute Lymphs (auto) (0.83-4.51) X10^3/ul Total Counted PT (11.7-14.9) SECONDS INR APTT (24.1-36.2) Seconds D-Dimer Quant (PE/DVT) 0.66 H* (0.27-0.49) FEU/ug/m Sodium (136-145) mmol/L Potassium (3.5-5.1) mmol/L Chloride (98-107) mmol/L Carbon Dioxide (21.0-32.0) mmol/L Anion Gap (5-15) BUN (7-18) mg/dL Creatinine (0.70-1.30) mg/dL Estim Creat Clear Calc ml/min Est GFR (MDRD) Af Amer (>60) mL/min Est GFR (MDRD) Non-Af (>60) mL/min BUN/Creatinine Ratio (10-20) RATIO Glucose (74-106) mg/dL Calcium (8.5-10.1) mg/dL Troponin I < 0.015 < 0.015 (<0.045) ng/mL Triglycerides ( - 199) mg/dL Cholesterol (200) mg/dL LDL Cholesterol (0-130) mg/dL VLDL Cholesterol (5-40) mg/dL HDL Cholesterol (40 - ) mg/dL 02/16/19 02/16/19 Range/Units 16:45 16:45 WBC 3.8 L (4.4-11.0) K/mm3 RBC 4.34 L (4.6-6.2) M/mm3 Hgb 13.3 (13.0-16.5) g/dl Hct 38.8 L (40-54) % MCV 89.4 (80-94) fL MCH 30.6 (27.0-32.0) pg MCHC 34.3 (32-36) g/gl RDW 14.1 (11.6-14.6) % RDW Differential 46.1 H (35.1-43.9) fl Plt Count 195 (150-450) K/mm3 MPV 9.1 (6.2-12.0) fl Immature Gran % (Auto) 0.300 (0.0-0.9) % Neut % (Auto) 50.7 (47-70) % Lymph % (Auto) 25.8 (19-41) % [place] % (Auto) 18.0 H (0-10) % Eos % (Auto) 4.7 (0-5) % Baso % (Auto) 0.5 (0-1) % Absolute Neuts (auto) 1.9 L (2.0-7.7) X10^3/uL Absolute Lymphs (auto) 0.99 (0.83-4.51) X10^3/ul Total Counted Not Reportable PT (11.7-14.9) SECONDS INR APTT (24.1-36.2) Seconds D-Dimer Quant (PE/DVT) (0.27-0.49) FEU/ug/m Sodium 139 (136-145) mmol/L Potassium 4.2 (3.5-5.1) mmol/L Chloride 106 (98-107) mmol/L Carbon Dioxide 29.0 (21.0-32.0) mmol/L Anion Gap 4 L (5-15) BUN 14 (7-18) mg/dL Creatinine 0.88 (0.70-1.30) mg/dL Estim Creat Clear Calc 88.40 ml/min Est GFR (MDRD) Af Amer 116 (>60) mL/min Est GFR (MDRD) Non-Af 95 (>60) mL/min BUN/Creatinine Ratio 15.9 (10-20) RATIO Glucose 95 (74-106) mg/dL Calcium 8.6 (8.5-10.1) mg/dL Troponin I < 0.015 (<0.045) ng/mL Triglycerides ( - 199) mg/dL Cholesterol (200) mg/dL LDL Cholesterol (0-130) mg/dL VLDL Cholesterol (5-40) mg/dL HDL Cholesterol (40 - ) mg/dL None Operations: None Procedures: Stress test - 1. Rest and stress SPECT Cardiolite nuclear imaging demonstrate relative uniform tracer uptake and myocardial perfusion appearing within normal limits. 2. The gated Cardiolite study reports an LVEF of 57 %. Summary of Care Provided: The patient is a 54 year old M with a PMH of colon CA(receiving chemo now), GERD and HLD who presented to the ED at [facility] on 02/16/2019 complaining of left side chest pain that radiated into his back and into the left shoulder. The pain increased with taking a deep breath and with movement. Lab in the emergency room revealed an elevated d-dimer and the patient was sent for a CTA of the chest which revealed no pulmonary emboli or arterial dissections. There is a 1 cm x 9 mm hypodense lesion within the right lobe of the thyroid and scattered 2- 3 mm pulmonary nodules. The initial troponin was within normal limits. The patient was admitted to a monitored bed on PCU and serial cardiac enzymes were negative. Pharmacologic nuclear stress test was done on 02/17/2019 and was negative for ischemia. The Cardiolite study reported an left ventricular ejection fraction of 57%. Telemetry showed normal sinus rhythm with 2 short episodes of sinus tachycardia at 110-120 bpm. On physical examination the day of discharge the patient had somatic dysfunction of the mid to lower thoracic rib cage. Palpation reproduced his anterior chest pain and palpation along the rib was painful from the back laterally and to the front. He was given a prescription for Zanaflex 2 mg and instructed to take 1 p.o. every 6 hours as needed for muscle spasm/chest pain. I told him that if the pain does not resolve in the next 24-48 hours he should see a chiropractor for an adjustment to put the rib back in place. PHYSICAL EXAM: GENERAL: alert, oriented X 3, Cooperative, NAD ORAL: moist mucosa, no mucosal lesions NECK: No JVD, supple, trachea midline LUNGS: CTA, symmetric chest expansion HEART: RRR, Normal S1 and S2, no rub, no gallop ABDOMEN: soft, NT, ND, BS present, no guarding with palpation EXTREMITIES: no edema, no cyanosis, no calf tenderness SKIN: No rashes, no breakdown NEUROLOGIC: no focal neurologic deficits PSYCH: appropriate, normal affect, pleasant This note was generated with [employer] dictation software. It may contain incorrect words, spelling, and punctuation that were not noted in checking the note before signing. Patient Problems: Active and Suspected Problems (Last Reviewed 02/16/19 @ 19:58 by Javon Arenas MD) Rib cage region somatic dysfunction (Acute) Chest pain (Acute) - Physical Exam Vital Signs Temp Pulse Resp BP Pulse Ox 98.0 F 78 18 118/79 96 02/17/19 08:35 02/17/19 11:00 02/17/19 08:35 02/17/19 08:35 02/17/19 08:35 Oxygen Flow Rate (L/min) 2 Oxygen Delivery Method Room Air Weight: 149 lb Body Mass Index (BMI) 22.6 Intake and Output for Last 24 Hours 02/15/19 02/16/19 02/17/19 23:59 23:59 23:59 Intake Total 400 / 400 Balance 400 / 400 Laboratory Tests Past 24 Hrs 02/16/19 02/16/19 02/16/19 16:45 16:45 16:45 WBC 3.8 L RBC 4.34 L Hgb 13.3 Hct 38.8 L MCV 89.4 MCH 30.6 MCHC 34.3 RDW 14.1 RDW Differential 46.1 H Plt Count 195 MPV 9.1 Immature Gran % (Auto) 0.300 Neut % (Auto) 50.7 Lymph % (Auto) 25.8 [place] % (Auto) 18.0 H Eos % (Auto) 4.7 Baso % (Auto) 0.5 Absolute Neuts (auto) 1.9 L Absolute Lymphs (auto) 0.99 Total Counted Not Reportable PT INR APTT D-Dimer Quant (PE/DVT) 0.66 H* Sodium 139 Potassium 4.2 Chloride 106 Carbon Dioxide 29.0 Anion Gap 4 L BUN 14 Creatinine 0.88 Estim Creat Clear Calc 88.40 Est GFR (MDRD) Af Amer 116 Est GFR (MDRD) Non-Af 95 BUN/Creatinine Ratio 15.9 Glucose 95 Calcium 8.6 Troponin I < 0.015 Triglycerides Cholesterol LDL Cholesterol VLDL Cholesterol HDL Cholesterol 02/16/19 02/17/19 02/17/19 21:15 00:25 04:50 WBC RBC Hgb Hct MCV MCH MCHC RDW RDW Differential Plt Count MPV Immature Gran % (Auto) Neut % (Auto) Lymph % (Auto) [place] % (Auto) Eos % (Auto) Baso % (Auto) Absolute Neuts (auto) Absolute Lymphs (auto) Total Counted PT 14.1 INR 1.1 APTT 25.2 D-Dimer Quant (PE/DVT) Sodium Potassium Chloride Carbon Dioxide Anion Gap BUN Creatinine Estim Creat Clear Calc Est GFR (MDRD) Af Amer Est GFR (MDRD) Non-Af BUN/Creatinine Ratio Glucose Calcium Troponin I < 0.015 < 0.015 Triglycerides Cholesterol LDL Cholesterol VLDL Cholesterol HDL Cholesterol 02/17/19 02/17/19 04:50 04:50 WBC 3.5 L RBC 4.08 L Hgb 12.5 L Hct 37.2 L MCV 91.2 MCH 30.6 MCHC 33.6 RDW 13.9 RDW Differential 45.3 H Plt Count 187 MPV 8.7 Immature Gran % (Auto) 0.600 Neut % (Auto) 52.0 Lymph % (Auto) 21.4 [place] % (Auto) 20.5 H Eos % (Auto) 4.6 Baso % (Auto) 0.9 Absolute Neuts (auto) 1.8 L Absolute Lymphs (auto) 0.74 L Total Counted Not Reportable PT INR APTT D-Dimer Quant (PE/DVT) Sodium 142 Potassium 4.0 Chloride 109 H Carbon Dioxide 27.0 Anion Gap 6 BUN 13 Creatinine 0.75 Estim Creat Clear Calc 105.13 Est GFR (MDRD) Af Amer 138 Est GFR (MDRD) Non-Af 114 BUN/Creatinine Ratio 17.2 Glucose 100 Calcium 8.3 L Troponin I Triglycerides 167 Cholesterol 234 H LDL Cholesterol 147 H VLDL Cholesterol 33 HDL Cholesterol 54 Discharge Activity: Return to Normal Activity, - - no driving or operating heavy equipment while taking Zanaflex until you knowq how it affects you. Call your doctor if you observe: Shortness of breath, Dizziness, Fainting spells, Swelling in the ankles, Chest pain, Calf discomfort Home Medications: Medications to take at Discharge Atorvastatin Calcium [Lipitor] 20 mg PO QHS 09/22/18 Omeprazole 40 mg PO DAILY 02/16/19 Tizanidine HCl [Zanaflex] 2 mg PO Q6H PRN PRN #12 tablet 02/17/19 Following Prescrptions Were Given to Patient: Tizanidine HCl [Zanaflex] 2 mg PO Q6H PRN PRN #12 tablet PRN Reason: Muscle Spasm Primary Care Physician: Parvez Winston MD [Primary Care Provider] - Please follow up with your Primary Care Physician in: as needed Disposition: Home Minutes spent on discharge:: 30 Patient Condition:: Good Medical Necessity - Tobacco Use Smoking Status: Former smoker Tobacco Use: Non-smoker Meaningful Use Info Meaningful Use Diagnoses (Choose all that apply): None applicable Code Visit OBSV E&M: 19686 Observation care discharge
[2019-02-17] MEDS: tiZANidine HCl 2 MG Tablet PO (13:48)
[2019-02-17] MEDS: 0.9% NaCl VAD Flush 10 ML IV (14:04)
== END 2019-02-17 13:36 | disposition home or self-care (01) ==
LOC: ED 17:14 → PCU 20:07
PROVIDERS: Admitting Provider Hospitalist; Emergency Provider Emergency Medicine; Family Provider Family Medicine; PCP Family Medicine; Visit Provider Internal Medicine
DX: R07.89 Other chest pain (principal); K21.9 Gastro-esophageal reflux disease without esophagitis; E78.5 Hyperlipidemia, unspecified; Z92.3 Personal history of irradiation; C18.9 Malignant neoplasm of colon, unspecified; Z82.49 Family history of ischemic heart disease and other diseases of the circulatory system; Z79.899 Other long term (current) drug therapy; Z87.891 Personal history of nicotine dependence; M99.08 Segmental and somatic dysfunction of rib cage
CPT/HCPCS: 36415; 71045; 71275; 78452; 80048; 80061; 84484; 85025; 85379; 85610; 85730; 93005; 93017; 96360; 96372; 99218; 99284; A9500; J7030; Q9967; A4216; G0378; J2785

== ENCOUNTER → 2019-05-06 15:57 | Outpatient (CLI) | payer SELFPAY ==
[2019-02-16 20:14] VITALS: BMI 22.6
--- NOTE | 2019-05-06 16:00 | VDUE_ITS ---
Reason For Study: Swelling Right Proximal Left Proximal Right subclavian vein is spontaneous, widely Acute deep vein thrombosis noted in the left patent, phasic, with no intraluminal internal jugular vein. echogenicity noted. Acute deep vein thrombosis noted in the left subclavian vein. Left Arm Acute deep vein thrombosis noted in the left axillary vein. Left brachial vein is compressible. Left cephalic vein is compressible. Left basilic vein is compressible. Left Lower Arm Left radial vein is compressible. Left ulnar vein is compressible. Patient Safety Prelim to Masci pt det ak to office. Interpretation Summary Acute deep vein thrombosis is noted in the left internal jugular vein, subclavian vein, and axillary vein. The remainder of the left upper extremity deep venous system is patent and compressible. The superficial veins of the left upper extremity, the basilic and cephalic veins, are patent and compressible. There is no evidence of left upper extremity superficial thrombophlebitis involving the veins imaged. Ordering Physician: Tanvir Evans Referring Physician: Raymundo Winston Performed By: Heike Estrada RVT ?
== END ==
PROVIDERS: Family Provider Family Medicine; PCP Family Medicine; Referring Provider Internal Medicine Hematology & Oncology; Visit Provider Internal Medicine Hematology & Oncology
DX: C20 Malignant neoplasm of rectum (principal); M79.89 Other specified soft tissue disorders
CPT/HCPCS: 93971

== ENCOUNTER 2020-02-08 15:53 | Observation (INO) | payer SELFPAY, OTHER ==
[2019-02-16 20:14] VITALS: BMI 22.6
--- NOTE | 2020-01-24 10:24 | HP.PCM_ITS ---
History and Physical Date of Admission: 01/24/20 Gonzalo Lares 1965 ? ? REFERRING PHYSICIAN: Tanvir Evans, DO ? CHIEF COMPLAINT: Right thyroid nodule - atypia ? HPI: The patient is a 55 year old male presents with right thyroid nodule with atypia. US guided FNA of thyroid nodule -?10/24/18? A. ?Right thyroid nodule fluid for cytology (cytospin and cell block):??Atypical follicular cells of undetermined significance are noted. B. ?Right thyroid nodule, FNA (smears):?Atypical follicular cells of undetermined significance are noted. RESULTS: ANTIBODY / CLONE ?RESULT CK19 ?(A53-B/A2.26) ?positive CD56 ?(123C3.D5) ?positive HBME1 ?(HBME-1) ?positive GAL3 ?(9C4) ?Negative Had undergone PET/CT scan for follow up of rectal cancer with findings of uptake in right thyroid. He denies swallowing problems. Denies globus symptoms. Denies new onset hoarseness. ? ? PAST MEDICAL HISTORY ? Gallegos esophagus ? ? Family history of coronary artery disease ? ? Hyperlipidemia ? ? Rectal cancer (HCC) ? ? PAST SURGICAL HISTORY ? COLONOSCOP W/ OR W/O BRSH SPEC ? 08/26/2018 ? mass and polyps ? EGD W/O OR W/BRUSH/WASH ? 08/26/2018 ? Gallegos's without dysplasia ? S PORT-A-CATH [id number] ? 09/22/2018 ? left subclavian port a cath w/fluro ?? Current Outpatient Medications ? Omeprazole 40 mg capsule Take 1 capsule by mouth once daily. ? acetaminophen (TYLENOL) 325 mg tablet Take 1-2 tablets by mouth every 6 hours as needed for Pain. ? COMPOUNDED PRESCRIPTION Take 2 Tablespoonsful by mouth once daily. Live One- for immune system ?? ALLERGIES: Patient has no known allergies. ? PERSONAL HISTORY: Social History ?Tobacco Use ? Smoking status: Former Smoker ? ? Packs/day: 2.00 ? ? Years: 5.00 ? ? Pack years: 10.00 ? ? Types: Cigarettes ? ? Last attempt to quit: 08/12/1993 ? ? Years since quittin.4 ? Smokeless tobacco: Never Used Substance Use Topics ? Alcohol use: No ? Drug use: No FAMILY HISTORY ? Coronary Artery Disease Father 48? [place] ? Coronary Artery Disease Brother 49? [place] ? Coronary Artery Disease Brother 54? [place] ? Hypertension Brother ? ? Coronary Artery Disease Brother 55? stents ? Hypertension Brother ? ? Heart Maternal Grandmother ? [place] early 60s ? Heart Maternal Grandfather? [place] early 60s ? Parkinsonism Brother ? ? Colon Cancer Brother 70 ? Prostate Cancer Brother 60 ? Muscular dystrophy Daughter ? ?? REVIEW OF SYSTEMS: Constitutional: Denies episodes of fever and night sweats. Neuro: ?Denies PADGETT, vertigo, dizziness and imbalance. HEENT: No recent change in voice, vision or hearing. Resp: No cough, wheeze or hemoptysis. CVS: Denies exertional chest pain, PND, orthopnea and LE edema. GI: See above. : Denies dysuria or gross hematuria. No symptoms of bladder outlet obstruction. Endo: Denies hot flashes. Denies polyuria and polydipsia. Denies heat and cold intolerance. Musculoskeletal: Denies bone, back, joint and muscular pain. Derm: Denies rash. Denies jaundice and diffuse pruritis. Heme: Denies unusual bleeding and unexplained bruising. Psych: Normal mood. ?? PHYSICAL EXAMINATION: General: ?The patient is 54 year old male, well nourished, well hydrated in no acute distress. ?The patient is oriented to time, place, and person. VITALS:?Blood pressure 130/80, pulse 65, temperature 36.6 ?C (97.8 ?F), temperature source Temporal Artery, height 172.7 cm (5' 8), weight 71.7 kg (158 lb), SpO2 96 %.?Body mass index is 24.02 kg/m?.? Head ? Normocephalic. EOM intact with sclera clear and no icterus noted. Mouth with mucus membranes moist. Neck - supple with no jugular venous distention noted. Trachea is midline. . Lungs ??no labored breathing noted, such as retractions. No cough heard. Abdomen ? soft and benign.?Colostomy in left lower quadrant. Extremities ? no pitting edema noted. Skin ? normal skin integrity. Neurological ??gait normal, no focal deficits noted Psych ? calm and appropriate ? IMPRESSION: right thyroid nodule with findings of atypia ? PLAN: I have discussed the above with the patient and his who is present with him. I have offered right thyroid lobectomy and isthmusectomy I have explained the procedure to the patient. I have counseled the patient as to the risks of the procedure, including but not limited to: infection, bleeding, injury to any blood vessels/nerves, scar tissue, injury to the recurrent laryngeal nerves/superior laryngeal nerves and their sequelae, injury to the parathyroid glands and their sequelae, cosmetic deformity, wound infections, complications of anesthesia, etc. ? the patient understands. The patient wishes to proceed. Will schedule for right thyroidectomy with isthmusectomy at [facility] as per patient's wishes. I have answered all questions to the patient?s satisfaction and the patient has no further questions. ? . 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
[2020-02-08] VITALS (9 sets, daily range): BP systolic 120–137; BP diastolic 74–90; PULSE 46–89; RESP 14–18; TEMP 36.2–37.1; O2SAT 95–99; BMI 24.1
--- NOTE | 2020-02-08 | IMM_PTH ---
PATIENT: SASKIA VILLARREAL LOC: MS3 U#:[id number] AGE/SX: 55/M ROOM: MI310 RE02/08/[address]: Dr. Cat Mohamud MD : 1965 BED: 1 DIS: 02/09/2020 SPEC #: [id number] RECD: 02/10/20 14:51 STATUS: LAYO REQ #: [id number] ANDRÉS: 02/08/20 00:[address]: Cat Mohamud DEPT: IMMUNOHISTOCHEMISTRY RECD BY: Margie Horta ENTERED: 02/10/20 14:52 SP TYPE: IMMUNO OTHR DR: Dr. Parvez Winston MD Tissues: Thyroid gland, NOS Procedures: HBME (initial) CD56 (add) CK19 (add) GAL-3 (add) HBME (add) PHYSICIAN & INSTITUTION [place] [id number] SPECIMEN INFORMATION: Tissue Source: Right thyroid lobe and isthmus Clinical Info: Right thyroid nodule with findings of atypia Specimen Number: [id number] #4 & 5 CPT code: 62959, 61693 x7 METHODOLOGY: Deparaffinized sections of prefer/formalin-fixed tissue or PAP/DQ stained slides are incubated with monoclonal/polyclonal antibodies/oligonucleotide probes. Localization is made via biotin free immunoperoxidase method. Appropriate controls are performed and reacted as expected. Results on target cell population are indicated in the following table: RESULTS: ANTIBODY / CLONE RESULT Block 4 HBME1 (HBME-1) positive CK19 (A53-B/A2.26) positive, focal GAL3 (9C4) negative CD56 (123C3.D5) positive Block 5 HBME1 (HBME-1) positive CK19 (A53-B/A2.26) positive, focal GAL3 (9C4) negative CD56 (123C3.D5) positive These tests were developed and their performance characteristics determined by [facility]. They may not have been cleared or approved by the U.S. Food and Drug Administration. The FDA has determined that such clearance or approval is not necessary. The above immunohistochemical/dualISH markers are ordered and reviewed by the Pathologist. INTERPRETATION: Right thyroid lobe and isthmus, lobectomy and isthmusectomy: Consistent with follicular adenoma. AM:beena 02/15/20 Case has been reviewed in consultation with Dr. Costa who concurs with the above diagnosis. IDC:HÉCTOR
[2020-02-08] MEDS: Lactated Ringers 1,000 ML 75 ML IV ×2 (12:10→15:15)
--- NOTE | 2020-02-08 13:30 | THYROID_PTH ---
PATIENT: SASKIA VILLARREAL LOC: MS3 U#:[id number] AGE/SX: 55/M ROOM: VT310 RE02/08/[address]: Dr. Cat Mohamud MD : 1965 BED: 1 DIS: 02/09/2020 SPEC #: [id number] RECD: 02/08/20 16:56 STATUS: LAYO RERusty #: [id number] ANDRÉS: 02/08/20 13:[address]: Cat Mohamud DEPT: SURGICAL PATHOLOGY RECD BY: Tai Atkins ENTERED: 02/09/20 07:49 SP TYPE: THYROID OTHR DR: Dr. Parvez Winston MD Tissues: Thyroid gland, NOS Procedures: Gen Path Consultation (on slides) Surgery Specimen Level V HEADER OPERATION: Thyroid lobectomy and isthmusectomy PRE-OP DIAGNOSIS: Right thyroid nodule with findings of atypia TISSUE SUBMITTED: Right thyroid lobe and isthmus MICROSCOPIC DIAGNOSIS Right thyroid lobe and isthmus, lobectomy and isthmusectomy: Follicular adenoma. Colloid nodules. No evidence of malignancy. AM:beena 02/15/20 COMMENT Immunohistochemistry ([id number]) supports the above diagnosis. No parathyroid glands are identified. Reference is made to the patient's right thyroid fine needle aspiration ([id number]) in which atypical follicular cells of undetermined significance were identified. This case was seen in consultation with Dr. Mohamud of [employer]. The complete report is viewable in patient's EMR. Case has been reviewed in consultation with Dr. Costa who concurs with the above diagnosis. IDC:SJ MICROSCOPIC DESCRIPTION Slides are reviewed. GROSS DESCRIPTION Received in fixative is one container labeled with the patient's name and designated right thyroid lobe and isthmus. The specimen consists of a thyroid lobectomy specimen with a portion of isthmus weighing 9.9 gm. The right thyroid lobe measures 4.5 x 2.7 x 1.5 cm and the isthmus measures 0.5 x 0.5 x 0.2 cm. A staple is noted at the isthmic resection margin. The isthmic resection margin is inked yellow. External parathyroid tissue is identified. The rest of the surface is inked as follows: posterior surface - black, anterior surface - blue. Sections reveal a bowman, solid nodule involving the superior and medial portion of the lobe measuring 2.5 x 2 x 1.5 cm. No well defined capsule is noticed around the nodule. The entire specimen is submitted in 11 cassettes as follows: 1 - isthmus, 2-11 - right lobe (2 containing most superior portion and 11 containing most inferior portion). / HÉCTOR:beena 02/09/20 TC:1 CPT: 38589
[2020-02-08] MEDS: Cefazolin 2 GM in 0.9% Normal Saline 100 ML IV (13:38)
--- NOTE | 2020-02-08 13:39 | OP.PCM_ITS ---
Report of Operation Date of Procedure: 02/08/20 Pre-Operative Diagnosis: right thyroid nodule of uncertain behavior Post-Operative Diagnosis: same Surgery/Procedure Performed:: right thyroid lobectomy and isthmusectomy Description of Surgical Findings:: right thyroid lobe and isthmus - palpable lower lobe nodule power ballast machine operator: Merlin Ochoa Type of Anesthesia:: General Anesthesiologist: Eloy Melendez Specimen's removed: right thyroid lobe and isthmus Estimated Blood Loss (mL): < 10 ml Fluids Replaced: 1100 ml RL Description of Procedure: After informed consent was obtained, the patient was brought to the Operating Room. Appropriate time out protocol was followed He was then placed in the supine position. He was then placed under GETA. The patient was then positioned with arms tucked and appropriate padding, with neck extension, and in the slightly reverse Trendelenburg position. The US device was brought up and the right thyroid gland was identified and delineated on the patient's neck surface so as to make the most appropriate incision. The neck and upper chest were then prepped with a sterile surgical skin preparation and appropriate sterile surgical drapes were placed. The landmarks were identified and a low cervical collar incision was made with a 15 blade scalpel and carried down to the subcutaneous tissues using Bovie in the electrocautery mode. The platysma was divided along the incision and then flaps were created superiorly to the cri coid cartilage level and inferiorly to the sternal notch. The fascia overlying the strap muscles was then divided along the midline. The right thyroid gland was thus approached. The plane between the thyroid gland anterior and the strap muscles posteriorly was then bluntly dissected. Dissection continued layer by layer to identify the inferior pole vessels of the right thyroid gland. The inferior pole vessels were identified and there was a nodular density in this area that was felt to be a thyroid nodule within the thyroid gland. The vessels were ligated with ligaclips and then transected with the Harmonic scalpel. The middle thyroid vein was identified and also ligated with ligaclips and then transected with the Harmonic scalpel. The inferior pole was then bluntly dissected free and the surrounding investiture. The right lobe of the thyroid thus could be retracted medially. Attention was then directed to the superior pole of the thyroid gland. The superior pole vessels were then ligated adjacent to the thyroid lobe in order to prevent damage to the superior laryngeal nerve. The parathyroid gland was identified and care was taken to preserve the blood supply to the para thyroid gland. The thyroid gland was appearing ischemic and shrunk in size and the gland could be further retracted medially. The recurrent laryngeal nerve was identified. The nerve appeared to be embedded in thyroid tissue but blunt dissection was able to separate the tissues. Once the thyroid tissue was free from the attachments to the trachea with the recurrent laryngeal nerve protected and dissection continued. There was a small tongue of thyroid tissue extended superior along the trachea and this was resected en logan with the left thyroid gland. It was then forwarded to pathology. Hemostasis was carefully controlled with electrocautery avoiding any injury to the recurrent laryngeal nerves and the parathyroid glands. Because there is some bleeding still near the area of the recurrent laryngeal nerve , Fibrillar was used for hemostasis. The fascia of the strap muscles was then reapproximated along the midline using Vicryl suture. The platysma muscle was then reapproximated in a transverse fashion using interrupted 2-0 Vicryl suture. The skin incision was then reapproximated using 4-0 Monocryl in a running subcuticular fashion. The skin closure was reinforced using Cavilon and Steri- Strips and a sterile OpSite dressing was applied. Prior to extubation, a glide scope examination was done. The vocal cords were noted to adduct bilaterally. The patient was then extubated. He was brought to the Recovery Room in stable condition. He was able to phonate the letter E without difficulty. - Complications none noted - Admit VTE Documentation VTE Present on Admission: Yes VTE Mechan Device Prophylaxis: SCD's
[2020-02-08] MEDS: Ketorolac 30 MG/ML Syringe IV (16:32)
--- NOTE | 2020-02-08 16:43 | DCINST_ITS ---
Discharge Diet: Light diet - advance as tolerated - drink plenty of fluids Discharge Activity: Return to Normal Activity, May not drive while taking narcotic pain medications. Call your doctor if your incision/area has: Continuous Slow Oozing, Increased Pain/ Swelling, Foul Smelling Discharge Call your doctor if you observe: Fever of 101 or Higher Additional Dressing/Incision Instructions:: Dressing is water proof - do not cover - may get wet in shower - do not scrub in the area of the incision Allergies/Adverse Reactions: Allergies No Known Allergies Allergy (Verified 02/01/20 10:10) Medications to take at Discharge Omeprazole 40 mg PO DAILY 02/16/19 Test Results: Test results from this visit will be discussed in further detail at your follow- up appointment, if applicable. Please Follow Up With: Cat Mohamud MD - When: Will contact patient for follow up
[2020-02-09 01:15] VITALS: BP 119/87; PULSE 72; RESP 18; TEMP 36.6; O2SAT 96
[2020-02-09] MEDS: Lactated Ringers 1,000 ML 75 ML IV (02:00)
[2020-02-09 05:28] VITALS: BP 134/77; PULSE 64; RESP 18; TEMP 37.2; O2SAT 96
[2020-02-09 07:43] LABS: Calcium,Total 8.6 mg/dL (8.5-10.1)
[2020-02-09 08:31] VITALS: BP 137/83; PULSE 63; RESP 16; TEMP 36.7; O2SAT 97
== END 2020-02-09 09:00 | disposition home or self-care (01) ==
LOC: MS3 02-09 07:14
PROVIDERS: Admitting Provider Surgery; PCP Family Medicine; Referring Provider Surgery; Visit Provider Surgery
PROC: (CPT 60220; principal; 2020-02-08 13:15)
DX: D34 Benign neoplasm of thyroid gland (principal); E78.5 Hyperlipidemia, unspecified; K21.9 Gastro-esophageal reflux disease without esophagitis; K22.70 Barrett's esophagus without dysplasia; Z85.048 Personal history of other malignant neoplasm of rectum, rectosigmoid junction, and anus; Z87.891 Personal history of nicotine dependence; Z79.899 Other long term (current) drug therapy
CPT/HCPCS: 60220; 36415; 82310; 88307; 88325; 88341; 88342; 96360; 96361; 99218; J7120; G0378; G0379; J2405